=== PATIENT | male | born 1955 | race Caucasian/White ===

== ENCOUNTER 2018-01-03 02:05 | Inpatient (IN) | payer BC ==
[2018-01-03] MEDS ORDERED: RX INFO: IV CONTRAST WAS GIVEN 1 EACH MISC MISCELLANE PRN (02:09)
[2018-01-03] MEDS ORDERED: SODIUM CHLORIDE 0.9% 1,000 ML IV STA (02:09)
[2018-01-03 02:30] LABS: Glucose,Whole Blood 129 mg/dL (75-99)
--- NOTE | 2018-01-03 02:30 | CT ---
EXAMINATION TYPE: CT brain wo con for TPA DATE OF EXAM: 01/03/2018 COMPARISON: NONE HISTORY: code stroke CT DLP: 1530.00 mGycm Automated exposure control for dose reduction was used. FINDINGS: There is cortical hypodensity involving the left posterior parietal lobe extending into the left post erior temporal lobe consistent with old infarct. There is a 2.5 cm area of hypodensity in the cortex left posterior frontal lobe also. There is no midline shift. There is no sign of intracranial hemorrh age. Calvarium is intact. IMPRESSION: OLD LEFT POSTERIOR TEMPORAL AND POSTERIOR PARIETAL LOBE INFARCT. NO EVIDENCE OF AN ACUTE INFARCT. NO HEMORRHAGE. 2.5 CM AREA OF CORTICAL HYPODENSITY IN THE LEFT POSTERIOR FRONTAL LOBE ALSO CONSISTENT WITH OLD INFAR CT.
--- NOTE | 2018-01-03 02:38 | CT ---
EXAMINATION TYPE: CT angio head neck DATE OF EXAM: 01/03/2018 HISTORY: code stroke weakness COMPARISON: NONE CT DLP: 1530.00 mGycm. Automated Exposure Control for Dose Reduction was Utilized. TECHNIQUE: Multiple axial sections were obtained from the level of the aortic arch to the vertex of the brain with intravenous contrast. There are 3-D post processed images. FINDINGS: There is extensive subcarinal and bronchial adenopathy. There is also paratracheal and anterior media stinal adenopathy. There is a 4 cm right paratracheal lymph node. There is no evidence of aneurysm or dissection at the aortic arch. There is normal branching pattern of the great vessels on the aortic arch. There is bilateral vertebr al artery flow which shows no abnormality. Vertebral arteries are symmetric. There is patency of the common internal and external carotid arteries bilaterally. There is wide maurer ncy of the carotid artery bifurcations. There is arterial flow in the vertebrobasilar artery system. There is arterial flow in the anterior m iddle and posterior cerebral arteries. I see no evidence of aneurysm or neovascularity. There is no m ass effect. There is normal contrast opacification of the venous sinuses. There is cortical hypodensi ty in the left posterior temporal lobe, left posterior parietal lobe. There is also small area of hyp odensity in the left posterior frontal lobe cortex. CONCLUSION: Hypodensity in the left cerebral hemisphere as above consistent with old infarcts. No evidence of ane urysm or neovascularity. No evidence of arterial stenosis. Extensive mediastinal and bronchial adenopathy suggestive of malignancy. Follow-up is recommended. In terstitial fibrotic changes noted throughout the visualized lung cline.
--- NOTE | 2018-01-03 02:44 | ED ---
General Adult HPI - General Stated complaint: poss stroke Time Seen by Provider: 01/03/18 02:09 Source: RN notes reviewed, old records reviewed - History of Present Illness Initial comments: This is a 62-year-old male to the ER for evaluation of right-sided weakness. Patient has multiple medical issues as of late including severe and end-stage pancreatic cancer, DVTs, patient is on anticoagulation. Patient awoke tonight with attempted to go to bathroom, was unable to get out of chair, unable to move right arm. Patient currently cannot move the right-sided body, patient's brought in by EMS. - Related Data Home Medications Medication Instructions Recorded Confirmed Apixaban [Eliquis] 2.5 mg PO BID 01/03/18 01/03/18 Allergies Allergy/AdvReac Type Severity Reaction Status Date / Time No Known Allergies Allergy Verified 01/03/18 02:44 Review of Systems ROS Statement: Those systems with pertinent positive or pertinent negative responses have been documented in the HPI. ROS Other: All systems not noted in ROS Statement are negative. General Exam - General Exam Comments Initial Comments: NIH of 9, right-sided hemiparesis General appearance: alert, in no apparent distress Head exam: Present: atraumatic, normocephalic, normal inspection Eye exam: Present: normal appearance, PERRL, EOMI. Absent: scleral icterus, conjunctival injection, periorbital swelling ENT exam: Present: normal exam, mucous membranes moist Neck exam: Present: normal inspection. Absent: tenderness, meningismus, lymphadenopathy Respiratory exam: Present: normal lung sounds bilaterally. Absent: respiratory distress, wheezes, rales, rhonchi, stridor Cardiovascular Exam: Present: regular rate, normal rhythm, normal heart sounds. Absent: systolic murmur, diastolic murmur, rubs, gallop, clicks GI/Abdominal exam: Present: soft, normal bowel sounds. Absent: distended, tenderness, guarding, rebound, rigid Extremities exam: Present: normal inspection, full ROM, normal capillary refill. Absent: tenderness, pedal edema, joint swelling, calf tenderness Back exam: Present: normal inspection Neurological exam: Present: alert, oriented X3, CN II-XII intact Psychiatric exam: Present: normal affect, normal mood Skin exam: Present: warm, dry, intact, normal color. Absent: rash Course Vital Signs 01/03/18 01/03/1818 02:15 02:30 02:45 Temperature 98.1 F Pulse Rate 94 96 94 Respiratory 18 17 15 Rate Blood Pressure 112/73 115/74 102/66 O2 Sat by Pulse 94 L 96 96 Oximetry 01/03/18 01/03/18 03:10 03:34 Temperature Pulse Rate 89 92 Respiratory 18 18 Rate Blood Pressure 100/73 118/80 O2 Sat by Pulse 96 97 Oximetry - Reevaluation(s) Reevaluation #1: 01/03/18 03:55 Patient is not keeping TPA candidate secondary discussion with family, end- stage terminal cancer, positive anticoagulation use Eliquis twice today EKG Findings - EKG Comments: EKG Findings:: EKG shows sinus rhythm rate of 98, KS 1:30, QRS 100, QTC 485 Medical Decision Making - Medical Decision Making 59 female the ER for evaluation of strokelike symptoms, severe hemiparalysis, patient be admitted for continued neurological evaluation, patient is DO NOT RESUSCITATE secondary to severe disease of pancreatic cancer - Lab Data Lab Results 01/03/18 Range/Units 02:09 POC Glucose (mg/dL) 129 H (75-99) mg/dL POC Glu Serger ID Nikolas Baker - Radiology Data Radiology results: report reviewed (CT brain CT shows no acute disease, old posterior left-sided parietal stroke), image reviewed Critical Care Time Critical Care Time: Yes Total Critical Care Time: 31 Disposition Clinical Impression: Cerebrovascular accident, Pancreatic cancer, DVT (deep venous thrombosis) Disposition: ADMITTED IP TO THIS [facility] Condition: Critical Referrals: None,Stated [Primary Care Provider] - 1-2 days
[2018-01-03] MEDS ORDERED: ASPIRIN 325 MG TAB PO STA (03:53)
[2018-01-03 04:29] LABS: Anisocytosis Slight; HCT 28.3 % (39.0-53.0); HGB 9.2 gm/dL (13.0-17.5); Hypochromasia Slight; MCH 31.8 pg (25.0-35.0); MCHC 32.5 g/dL (31.0-37.0); Macrocytosis Slight; Mean Platelet Volume 10.2; Poikilocytosis Slight; RBC 2.89 m/uL (4.30-5.90); RDW 19.4 % (11.5-15.5); WBC 11.3 k/uL (3.8-10.6)
[2018-01-03 04:46] LABS: INR 1.8 (<1.2); Partial Thromboplastin Time 24.6 sec (22.0-30.0); Prothrombin Time 16.3 sec (9.0-12.0)
[2018-01-03] MEDS ORDERED: MORPHINE SULFATE 4MG/4ML SYRG IVP STA (04:51)
[2018-01-03 04:57] LABS: Albumin 2.8 g/dL (3.5-5.0); Calcium 9.1 mg/dL (8.4-10.2); Potassium 4.2 mmol/L (3.5-5.1); Total Bilirubin 4.8 mg/dL (0.2-1.3); Total Protein 6.3 g/dL (6.3-8.2)
[2018-01-03 05:01] LABS: Creatine Kinase 44 U/L (55-170)
[2018-01-03 05:10] LABS: Appearance,Urine Cloudy (Clear); Bacteria,Urine Rare /hpf; Bilirubin,Urine 1+ (Negative); Blood,Urine Small (Negative); Color,Urine Orange; Glucose,Urine (UA) Negative (Negative); Granular Casts,Urine 3 /lpf (0); Ketones,Urine Negative (Negative); Leukocyte Esterase,Urine Negative (Negative); Mucus,Urine Rare /hpf; Nitrite,Urine Negative (Negative); PH, Urine 5.5 (5.0-8.0); Protein,Urine 1+ (Negative); RBC,Urine 4 /hpf (0-5); Specific Gravity,Urine 1.036 (1.001-1.035); WBC,Urine 5 /hpf (0-5)
[2018-01-03 05:14] LABS: Creatine Kinase MB <0.2 ng/mL (0.0-2.4)
[2018-01-03 05:19] LABS: Band Neutrophils % 15 %; Eosinophils # (M) 0.57 k/uL (0-0.7); Lymphocytes # (M) 1.02 k/uL (1.0-4.8); Metamyelocytes # (M) 0.11 k/uL (0); Metamyelocytes % 1 %; Nucleated Red Blood Cells 0 /100 WBC (0-0)
[2018-01-03 05:20] LABS: Neutrophils % (M) 63 %; Total Cells Counted 200
[2018-01-03 05:22] LABS: Anisocytosis (M) Present; Polychromasia Present
[2018-01-03 05:24] LABS: Platelet Count 80 k/uL (150-450)
[2018-01-03 05:50] LABS: Troponin I 0.053 ng/mL (0.000-0.034)
[2018-01-03] MEDS ORDERED: SENNOSIDES 8.6 MG TAB PO PRN (09:34)
[2018-01-03] MEDS: MORPHINE SULFATE IR 15 MG TABLET PO PRN ×3 (10:00→21:32)
[2018-01-03] MEDS: MEGESTROL 400 MG/10 ML CUP PO SCH (10:02)
[2018-01-03] MEDS: APIXABAN 2.5 MG TABLET PO SCH ×2 (10:02→21:32)
[2018-01-03] MEDS: SODIUM CHLORIDE 0.9% 1,000 ML IV SCH ×2 (11:18→16:52)
--- NOTE | 2018-01-03 14:08 | P.CONS ---
History of Present Illness - Reason for Consult Consult date: 01/03/18 Pancreatic cancer Requesting physician: Alex Cotton - Chief Complaint right hemiparesis - History of Present Illness Mr. Strickland is a pleasant 62 yo male with history of newly found metastatic pancreatic cancer while in [place] for the winter, recently returned here and seen by Dr. Vigil, who presents for acute onset right hemiparesis, found to have acute CVA. He was diagnosed with bilateral LE DVT's while in [place] and further work up revealed diffusely metastatic malignancy. Liver biopsy done which showed pancreatic cancer. He came back home here, and was seen by Dr. Vigil a couple weeks ago. At that time, his PS was quickly declining and single agent therapy vs comfort measures were discussed. He opted for palliative care at home. He then woke up yesterday morning and was not able to move his right arm or leg. He was brought to the ED where he was found to have acute stroke. He is not a candidate for TPA due to anticoagulation therapy with eliquis for his VTE's. Otherwise, no new complaints. Past Medical History Past Medical History: Cancer Additional Past Medical History / Comment(s): polio; liver and pancreatic CA History of Any Multi-Drug Resistant Organisms: None Reported Past Surgical History: Unable to Obtain Past Psychological History: No Psychological Hx Reported Smoking Status: Former smoker Past Alcohol Use History: None Reported Past Drug Use History: None Reported Medications and Allergies Home Medications Medication Instructions Recorded Confirmed Type Apixaban [Eliquis] 2.5 mg PO BID 01/03/18 01/03/18 History Lactulose 20 gm PO TID PRN 01/03/18 01/03/18 History Megestrol [Megace] 400 mg PO DAILY 01/03/18 01/03/18 History Morphine Sulfate Ir [Msir] 15 mg PO Q6HR PRN 01/03/18 01/03/18 History Sennosides [Senna] 17.2 mg PO BID PRN 01/03/18 01/03/18 History Allergies Allergy/AdvReac Type Severity Reaction Status Date / Time No Known Allergies Allergy Verified 01/03/18 07:32 Physical Exam Vitals: Vital Signs Temp Pulse Pulse Resp BP BP Pulse Ox 01/03/18 10:53 97.1 F L 89 18 125/74 98 01/03/18 10:13 98 F 85 18 121/61 98 01/03/18 09:20 72 19 117/68 97 01/03/18 08:23 87 18 105/59 97 01/03/18 06:15 90 17 96/67 98 01/03/18 05:39 90 18 106/70 98 01/03/18 05:00 97 18 105/72 98 01/03/18 04:00 94 17 112/76 100 01/03/18 03:34 92 18 118/80 97 01/03/18 03:10 89 18 100/73 96 01/03/18 02:45 94 15 102/66 96 01/03/18 02:30 96 17 115/74 96 01/03/18 02:15 98.1 F 94 18 112/73 94 L Intake and Output 01/02/18 01/03/18 01/03/18 22:59 06:59 14:59 Output Total 0 Balance 0 Output: Urine 0 Stool 0 Other: Voiding Method Urinal # Voids 0 # Bowel Movements 0 Weight 104.326 kg Constitutional: No acute distress. HEENT: EOMI. No pallor. Does have scleral icterus. Mucosa moist without lesions. Neck: Neck supple. Lungs:Respiratory effort normal. Heart: Regular rate. No LE edema. Abdomen: Soft, nontender, however distended and firm. MSK: 4/4 strength in all 4 extremities. Neuro: Alert and oriented x 3. Right hemiparesis. Some difficulty with slurring of his speech. Skin: Jaundice. Psych: Appropriate affect Results CBC & Chem 7: 01/03/18 03:56 01/03/18 03:56 Labs: Abnormal Lab Results - Last 24 Hours (Table) 01/03/18 01/03/18 01/03/18 Range/Units 02:09 03:56 03:56 WBC 11.3 H (3.8-10.6) k/uL RBC 2.89 L (4.30-5.90) m/uL Hgb 9.2 L (13.0-17.5) gm/dL Hct 28.3 L (39.0-53.0) % RDW 19.4 H (11.5-15.5) % Plt Count 80 L (150-450) k/uL Neutrophils # (Manual) 8.80 H (1.3-7.7) k/uL Metamyelocytes # (Man) 0.11 H (0) k/uL PT (9.0-12.0) sec INR (<1.2) Sodium (137-145) mmol/L BUN (9-20) mg/dL Creatinine (0.66-1.25) mg/dL Glucose (74-99) mg/dL POC Glucose (mg/dL) 129 H (75-99) mg/dL Total Bilirubin (0.2-1.3) mg/dL AST (17-59) U/L ALT (21-72) U/L Alkaline Phosphatase (38-126) U/L Total Creatine Kinase 44 L (55-170) U/L Troponin I 0.053 H* (0.000-0.034) ng/mL Albumin (3.5-5.0) g/dL Ur Specific [place] (1.001-1.035) Urine Protein (Negative) Urine Blood (Negative) Urine Bilirubin (Negative) Urine Bacteria (None) /hpf Urine Mucus (None) /hpf 01/03/18 01/03/18 01/03/18 Range/Units 03:56 03:56 04:39 WBC (3.8-10.6) k/uL RBC (4.30-5.90) m/uL Hgb (13.0-17.5) gm/dL Hct (39.0-53.0) % RDW (11.5-15.5) % Plt Count (150-450) k/uL Neutrophils # (Manual) (1.3-7.7) k/uL Metamyelocytes # (Man) (0) k/uL PT 16.3 H (9.0-12.0) sec INR 1.8 H (<1.2) Sodium 135 L (137-145) mmol/L BUN 33 H (9-20) mg/dL Creatinine 1.30 H (0.66-1.25) mg/dL Glucose 130 H (74-99) mg/dL POC Glucose (mg/dL) (75-99) mg/dL Total Bilirubin 4.8 H (0.2-1.3) mg/dL AST 190 H (17-59) U/L ALT 113 H (21-72) U/L Alkaline Phosphatase 216 H (38-126) U/L Total Creatine Kinase (55-170) U/L Troponin I (0.000-0.034) ng/mL Albumin 2.8 L (3.5-5.0) g/dL Ur Specific [place] 1.036 H (1.001-1.035) Urine Protein 1+ H (Negative) Urine Blood Small H (Negative) Urine Bilirubin 1+ H (Negative) Urine Bacteria Rare H (None) /hpf Urine Mucus Rare H (None) /hpf CT Scan - head: report reviewed Assessment and Plan Assessment: Acute CVA Metastatic pancreatic cancer Plan: Mr. Strickland is a very pleasant 62 yo male with newly diagnosed metastatic pancreatic cancer and LE DVT on eliquis who has been under the care of palliative at home, here for acute CVA and right sided hemiparesis. His malignancy is quite advanced, and with his poor PS, he is not a candidate for chemotherapy at this time. Overall prognosis is extremely poor. After discussion with pt and his family at bedside, they do not wish him to to through treatments for his malignancy either and he would like to focus his care on comfort measures. I did discuss palliative care which he currently has as opposed to hospice care. At this time, he would like to go to a facility close to home with hospice care, which I agree with. Will discuss with nurse case manager regarding this. All questions were answered and they were agreeable with the plan.
--- NOTE | 2018-01-03 15:46 | HP ---
HISTORY AND PHYSICAL DATE OF ADMISSION: January 03, 2018. PRESENTING COMPLAINT: Right-sided weakness. HISTORY OF PRESENTING COMPLAINT: This is a very pleasant 62-year-old patient of Dr. Lopez. Also follows with Dr. Vigil. The patient was in [place] where he was diagnosed to have bilateral DVT going more proximally and in the workup, patient was found to have metastatic pancreatic cancer with metastases to the liver, lymph nodes in the abdomen. The patient did also have a liver biopsy. Family has decided not for any treatment. The patient does have some chronic weakness of the right arm, though able to use it from polio. Otherwise, patient has been in good health prior to this. The patient sitting on a recliner tried to get up, could not really use the right arm and right leg and there was no change in speech. No change in vision. No headache. Because patient is on Eliquis for the chronic DVT, the patient is not felt to be a candidate for any tPA and patient admitted with an acute stroke. The patient is left handed. No improvement since initial presentation. The patient's and son at the bedside. REVIEW OF SYSTEMS: Constitutional: Tired, weight loss, loss of appetite. HEENT none. Respiratory none. Cardiovascular none. Gastrointestinal: Some chronic slight abdominal pain. Genitourinary none. Musculoskeletal none. Dermatological and hematologic, lymphatic none. Psychiatry none. Neurological as above. PAST MEDICAL HISTORY: Past medical history of metastatic pancreatic cancer to the liver, abdominal, some chronic right arm weakness from polio. PAST SURGICAL HISTORY: Left breast, left flank benign lesions removed, colonoscopy, bilateral cataract surgery with lens implant. SOCIAL HISTORY: The patient does not smoke or drink alcohol. . Used to work in a factory. FAMILY HISTORY: Father of a heart attack at age of age 43. HOME MEDICATIONS: Senna 17.2 p.o. b.i.d. p.r.n., morphine sulfate 50 mg q.6h p.r.n., Megace 400 mg p.o. daily, lactulose 20 g p.o. t.i.d. p.r.n., Eliquis 2.5 p.o. b.i.d. ALLERGIES: None. PHYSICAL EXAMINATION: Vital signs on presentation: Temperature 98.1, pulse 101, respiration 18, blood pressure 110/77, pulse ox 95% on room air. General appearance: Well built. BMI 31.2, lying in bed awake. Eyes: Pupils are equal. Conjunctivae normal. HEENT external appearance of nose and ears normal. Oral cavity normal. Neck: JVD not raised. Mass not palpable. Respiratory effort: Normal. Lungs are clear. Cardiovascular 1st and 2nd sounds normal. No edema. ABDOMEN: Soft, some mild abdominal tenderness. Liver and spleen not palpable. Lymphatics: No lymph nodes palpable in the neck and axilla. PSYCHIATRY: Alert and oriented times three. Mood and affect normal. Neurological: Pupils equal. Cranial nerves grossly intact. Power and sensation grossly intact. Neurological: Pupils equal. No facial asymmetry. Power in the right arm is 1 x 5, power in the right leg is 1 x 5. Sensation grossly preserved. Reflexes are increased on the right side. INVESTIGATIONS: White count 11.3, hemoglobin 9.2, platelets 80. Potassium 4.2, BUN 33, creatinine 1.30, AST 190, ALT 113. CT scan of the brain shows old left posterior temporal and posterior parietal lobe infarct. No hemorrhage. Also 2.5 cm of cortical hyperdensity in the left posterior frontal lobe. EKG normal sinus rhythm. ASSESSMENT: 1. Acute stroke in a left-handed patient on the right side of the body, rather dense, probably could be in the brainstem. The patient is not a candidate for tPA of already being on Eliquis for a prior deep vein thrombosis. 2. Chronic bilateral deep vein thrombosis from underlying malignancy for which patient is chronically on Eliquis. 3. Anorexia from underlying malignancy. 4. Metastatic pancreatic cancer. 5. Chronic right arm weakness from prior history of polio. 6. Obesity BMI 31.2. PLAN: I had a lengthy talk with the patient and the . At this point, they do not wish to be too aggressive of course given his metastatic disease. We will have PT/OT assess the patient and see if he is a candidate for rehab. Overall prognosis is not good given his metastatic disease. The pain control is in place. We will keep the patient presently on Eliquis. The patient has no trouble swallowing. Did speak to the piano case maker about the same. Patient's CODE STATUS IS DO NOT RESUSCITATE. This has to be reconfirmed with the . Copy to Dr. Vigil. MMTARUNL / CAROLYNN: [id number] /
--- NOTE | 2018-01-03 20:28 | P.CNNES ---
History of Present Illness Consult date: 01/03/18 Reason for Consult: Patient admitted with right sided weakness and possible TIA vs. stroke. History of Present Illness: This patient is a 62-year-old right-handed white male who was recently diagnosed implored as having bilateral deep vein thrombosis. Patient also mentions that he recently was diagnosed as having metastatic pancreatic cancer while in [place]. He has returned back to [place] and apparently has been seen by Dr. Carpenter in the oncology clinic. He is not felt to be a candidate for chemotherapy given the advanced stage of his pancreatic cancer. He underwent some further evaluation including liver biopsy which did show metastatic lesions to the liver. According to the patient at about midnight yesterday he developed sudden onset of right-sided weakness. He was unable to lift his right arm and later noticed he could not move his right leg. He was brought into the emergency room for further evaluation. He was seen in the ER by Dr. Montoya. He went for a computed tomography scan of the brain which revealed him to have evidence of a old left posterior temporal and posterior parietal lobe infarct. There is also old left frontal lobe infarct noted on the CAT scan. A code stroke was initiated in the ER but he was excluded for TPA as he is been on Eliquis for treatment of his chronic DVTs. 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 When questioned about the CAT scan results in regards to old strokes a patient was unaware of old stroke. Patient was also sent for a CTA angiogram of the head and neck which revealed hypodensity in the left cerebral hemisphere consistent with old infarcts. There was no evidence of aneurysm and no evidence of arterial stenosis. Case was discussed today with Dr. Cotton. Apparently the has made his CODE STATUS is DO NOT RESUSCITATE. They're considering whether to place the patient into subacute rehab or even to consider hospice care for him long-term. The family does not wish to proceed with any aggressive evaluation such as MRI of the brain at this time. We have suggested MRI would be most helpful for further evaluation of acute left hemispheric stroke. As per the family wishes we will hold off on further testing given his overall medical condition with metastatic pancreatic cancer. Patient may benefit from PT OT evaluation for his acute right hemiplegic weakness. If the family decides to be more aggressive weak and easily recommend further stroke evaluation for this patient. His overall prognosis at this time remains very guarded. Review of Systems Constitutional: Denies chills, Denies fever Eyes: denies blurred vision, denies pain Ears, nose, mouth and throat: Denies headache, Denies sore throat Cardiovascular: Denies chest pain, Denies shortness of breath Respiratory: Denies cough Gastrointestinal: Denies abdominal pain, Denies diarrhea, Denies nausea, Denies vomiting Musculoskeletal: Denies myalgias Integumentary: Denies pruritus, Denies rash Neurological: Reports gait dysfunction, Reports motor disturbance, Reports paralysis, Reports paresthesias, Denies numbness, Denies weakness Psychiatric: Denies anxiety, Denies depression Endocrine: Denies fatigue, Denies weight change Past Medical History Past Medical History: Cancer Additional Past Medical History / Comment(s): polio; liver and pancreatic CA History of Any Multi-Drug Resistant Organisms: None Reported Past Surgical History: Unable to Obtain Additional Past Surgical History / Comment(s): L breast and L flank benign lesions removed, colonoscopy, bilateral cataract removals with lens implants. Past Anesthesia/Blood Transfusion Reactions: No Reported Reaction Past Psychological History: No Psychological Hx Reported Smoking Status: Former smoker Past Alcohol Use History: None Reported Past Drug Use History: None Reported - Past Family History Father Family Medical History: Myocardial Infarction ([place]) Additional Family Medical History / Comment(s): Father at the age of 43 yrs from a [place]. Mother Family Medical History: Coronary Artery Disease (CAD), Diabetes Mellitus, Hypertension Additional Family Medical History / Comment(s): Mother had CABG. She at the age of 90yrs. Medications and Allergies Home Medications Medication Instructions Recorded Confirmed Type Apixaban [Eliquis] 2.5 mg PO BID 01/03/18 01/03/18 History Lactulose 20 gm PO TID PRN 01/03/18 01/03/18 History Megestrol [Megace] 400 mg PO DAILY 01/03/18 01/03/18 History Morphine Sulfate Ir [Msir] 15 mg PO Q6HR PRN 01/03/18 01/03/18 History Sennosides [Senna] 17.2 mg PO BID PRN 01/03/18 01/03/18 History Allergies Allergy/AdvReac Type Severity Reaction Status Date / Time No Known Allergies Allergy Verified 01/03/18 07:32 Physical Examination - Vital Signs Vital Signs: Vital Signs Temp Pulse Pulse Resp BP BP Pulse Ox 01/03/18 15:00 97.5 F L 91 16 108/69 99 01/03/18 14:53 97.5 F L 91 16 108/69 99 01/03/18 12:53 97.1 F L 89 18 101/71 98 01/03/18 10:53 97.1 F L 89 18 125/74 98 01/03/18 10:13 98 F 85 18 121/61 98 01/03/18 09:20 72 19 117/68 97 01/03/18 08:23 87 18 105/59 97 01/03/18 06:15 90 17 96/67 98 01/03/18 05:39 90 18 106/70 98 01/03/18 05:00 97 18 105/72 98 01/03/18 04:00 94 17 112/76 100 01/03/18 03:34 92 18 118/80 97 01/03/18 03:10 89 18 100/73 96 01/03/18 02:45 94 15 102/66 96 01/03/18 02:30 96 17 115/74 96 01/03/18 02:15 98.1 F 94 18 112/73 94 L Intake and Output 01/03/18 01/03/18 01/03/18 06:59 14:59 22:59 Intake Total 237 Output Total 0 0 Balance 237 0 Intake: Oral 237 Output: Urine 0 Stool 0 0 Other: Voiding Method Urinal Urinal # Voids 0 # Bowel Movements 0 Weight 104.326 kg - Constitutional General appearance: average body habitus, cooperative - EENT EENT: PERRL, mucous membranes moist - Respiratory Respiratory: lungs clear, normal breath sounds - Cardiovascular Cardiovascular: regular rate, normal S1, normal S2 Extremities: no peripheral edema bilaterally - Gastrointestinal Gastrointestinal: normoactive bowel sounds - Integumentary Integumentary: normal - Neurologic Cranial nerve examination: PERRL, EOMI, VFF, V1/V2/V3 grossly intact, face symmetric, intact gag reflex, intact corneal reflex, normal palatal elevation Speech examination: intact Sensorimotor examination: intact Motor examination - right side: 10/05: biceps, triceps, wrist flexion, wrist extension, manager internal, hip flexors, knee extensors, dorsiflexion, toe extension (EHL) , plantarflexion Motor examination - left side: 4/5: biceps, triceps, wrist flexion, wrist extension, manager internal, hip flexors, knee extensors, dorsiflexion, toe extension (EHL) , plantarflexion Detailed sensory examination: intact Reflex and gait examination: intact Reflexes: 1+: ankle, bicep, knee, tricep - Musculoskeletal Musculoskeletal: no pain - Psychiatric Psychiatric: mood/affect appropriate, cooperative Results - Laboratory Findings CBC and BMP: 01/03/18 03:56 01/03/18 03:56 Abnormal Lab Findings: Abnormal Labs 01/03/18 01/03/18 01/03/18 02:09 03:56 03:56 WBC 11.3 H RBC 2.89 L Hgb 9.2 L Hct 28.3 L RDW 19.4 H Plt Count 80 L Neutrophils # (Manual) 8.80 H Metamyelocytes # (Man) 0.11 H PT INR Sodium BUN Creatinine Glucose POC Glucose (mg/dL) 129 H Total Bilirubin AST ALT Alkaline Phosphatase Total Creatine Kinase 44 L Troponin I 0.053 H* Albumin Ur Specific [place] Urine Protein Urine Blood Urine Bilirubin Urine Bacteria Urine Mucus 01/03/18 01/03/18 01/03/18 03:56 03:56 04:39 WBC RBC Hgb Hct RDW Plt Count Neutrophils # (Manual) Metamyelocytes # (Man) PT 16.3 H INR 1.8 H Sodium 135 L BUN 33 H Creatinine 1.30 H Glucose 130 H POC Glucose (mg/dL) Total Bilirubin 4.8 H AST 190 H ALT 113 H Alkaline Phosphatase 216 H Total Creatine Kinase Troponin I Albumin 2.8 L Ur Specific [place] 1.036 H Urine Protein 1+ H Urine Blood Small H Urine Bilirubin 1+ H Urine Bacteria Rare H Urine Mucus Rare H Assessment and Plan (1) Acute ischemic left MCA stroke Current Visit: Yes Status: Acute Code(s): I63.512 - CEREB INFRC D/T UNSP OCCLS OR STENOS OF LEFT MID CEREB ART SNOMED Code(s): 353975633 (2) DVT (deep venous thrombosis) Current Visit: Yes Status: Acute Code(s): I82.409 - ACUTE EMBOLISM AND THOMBOS UNSP DEEP VN UNSP LOWER EXTREMITY SNOMED Code(s): 983294644 (3) Pancreatic cancer Current Visit: Yes Status: Acute Code(s): C25.9 - MALIGNANT NEOPLASM OF PANCREAS, UNSPECIFIED SNOMED Code(s): 250729388 Plan: This patient is a 62-year-old male who was admitted with sudden onset of right- sided hemiplegia. Patient recently was diagnosed as having metastatic pancreatic cancer as well as bilateral DVTs in his legs. He states this diagnosis was made in [place] and he has since returned to [place] for further management of his underlying cancer condition. He is being followed by Dr. Vigil. He is not felt to be a candidate for chemotherapy as he does have metastatic pancreatic cancer with spread to the liver, lymph nodes and abdomen. Apparently according to Dr. Cotton his wishes the patient to be made DO NOT RESUSCITATE and does not wish to pursue aggressive treatment at this time. His neurological exam findings are one of dense hemiplegia on the right side. He underwent a computed tomography scan of the brain the results which are noted above. We have recommended an MRI of the brain but this has been placed on hold at this time as family does not wish to pursue aggressive evaluation. They would like to consider subacute rehab placement and possible hospice care for the patient. We would recommend PT OT evaluation for the patient. He is currently on Eliquis for treatment of bilateral DVTs. He is not a candidate for TPA as he is on anticoagulant. The patient is aware of his CAT scan findings. At this time we will await further recommendations per his other specialists in regards to his metastatic pancreatic cancer and further workup and treatment. This patient likely has suffered an acute left hemispheric stroke. Given his advanced metastatic pancreatic cancer further workup has been deferred at this time at the wishes of the family. We will continue to follow his progress as needed. His overall prognosis at this time remains very guarded. Anyone 750 twice a 82 things it somewhat better Time with Patient: Greater than 30
[2018-01-04 03:12] LABS: Cholesterol 187 mg/dL (<200); HDL Cholesterol 10 mg/dL (40-60); LDL Cholesterol,Calculated 129 mg/dL (0-99); Triglycerides 242 mg/dL (<150)
[2018-01-04] MEDS: MORPHINE SULFATE IR 15 MG TABLET PO PRN ×3 (04:59→20:21)
[2018-01-04] MEDS: APIXABAN 2.5 MG TABLET PO SCH ×2 (08:13→20:21)
[2018-01-04] MEDS: MEGESTROL 400 MG/10 ML CUP PO SCH (08:14)
[2018-01-04] MEDS: ASPIRIN 325 MG TAB PO SCH (08:14)
[2018-01-04 09:50] VITALS: BMI 31.5
--- NOTE | 2018-01-04 18:09 | P.PN ---
Subjective Progress Note Date: 01/04/18 This patient is a 62-year-old right-handed white male who is being followed for symptoms of acute right-sided hemiplegia. The patient had findings of dense right-sided hemiplegia. There was concern that he likely has suffered an acute left MCA stroke. He has history of metastatic pancreatic cancer as well and family has decided on conservative management for this patient. He is not a candidate for any aggressive treatment for the pancreatic cancer as per his attending physician Dr. Cotton. Family is considering transferring the patient to a subacute rehab for further management of his acute stroke findings. The patient is resting completely today in his bed. He states physical therapy was able to get him up and sitting on the side of the bed. They are working on some passive exercise program for his acute right-sided weakness. The patient otherwise seems to be doing fairly well. He is considering transfer to the subacute rehab unit at [facility] in [place] when a bed is available. We will continue close neurological follow-up with the patient during this admission. Objective - Vital Signs Vital signs: Vital Signs Temp 98.1 F 01/04/18 15:36 Pulse 95 01/04/18 16:00 Resp 16 01/04/18 16:00 BP 103/70 01/04/18 15:36 Pulse Ox 95 01/04/18 15:36 Intake & Output 01/03/18 01/04/18 01/04/18 18:59 06:59 18:59 Intake Total 237 240 Output Total 175 200 0 Balance 62 -200 240 Weight 105.4 kg 105.4 kg Intake: Oral 237 240 Output: Urine 175 200 Stool 0 0 Other: Voiding Method Urinal Urinal Urinal # Voids 1 175 2 # Bowel Movements 0 - Exam Physical examination: PHYSICAL EXAMINATION: Patient is resting comfortably in bed. VITAL SIGNS: Blood pressure is [103/70]. Heart rate is [95]. Respiration is [16] . Temperature is [98.1]. HEENT: Head is atraumatic, neck is supple, there were no carotid bruits. CHEST: Lungs are clear to auscultation and percussion. CARDIAC: S1, S2 normal rate and rhythm. There is no murmur. ABDOMEN: Soft and nontender. Bowel sounds are present. EXTREMITIES: There is no pedal edema. Peripheral pulses are present. Neurological examination: Patient's neurological examination is unchanged from yesterday. He has a dense right-sided hemiplegia. Speech is clear with no evidence of any aphasia. Deep tendon reflexes are 2+ and symmetric. Plantar responses extensor on the right and flexor on the left - Labs CBC & Chem 7: 01/03/18 03:56 01/03/18 03:56 Labs: Abnormal Lab Results - Last 24 Hours (Table) 01/03/18 Range/Units 03:56 Triglycerides 242 H (<150) mg/dL LDL Cholesterol, Calc 129 H (0-99) mg/dL HDL Cholesterol 10 L (40-60) mg/dL Assessment and Plan (1) Acute ischemic left MCA stroke Current Visit: Yes Status: Acute Code(s): I63.512 - CEREB INFRC D/T UNSP OCCLS OR STENOS OF LEFT MID CEREB ART SNOMED Code(s): 344099674 (2) DVT (deep venous thrombosis) Current Visit: Yes Status: Acute Code(s): I82.409 - ACUTE EMBOLISM AND THOMBOS UNSP DEEP VN UNSP LOWER EXTREMITY SNOMED Code(s): 110675999 (3) Pancreatic cancer Current Visit: Yes Status: Acute Code(s): C25.9 - MALIGNANT NEOPLASM OF PANCREAS, UNSPECIFIED SNOMED Code(s): 146242296 Plan: This patient is a 62-year-old male who is being followed for acute onset of right-sided hemiplegia. The patient has likely suffered an acute left hemispheric stroke. He has a history of metastatic pancreatic cancer and it has been decided to proceed with supportive care for the patient. His and family does not wish to pursue aggressive treatment for his stroke at this time but rather seek out subacute rehab placement. He has a dense right-sided hemiplegia which is unchanged from his initial presentation. He was able to work with physical therapy today an exercise program was reviewed. He will await a placement to the subacute rehab unit once a bed is available. We will continue close neurological follow-up for the patient during this admission.
--- NOTE | 2018-01-04 18:50 | PN ---
PROGRESS NOTE DATE OF SERVICE: 01/04/2018 PRESENTING COMPLAINT: Right-sided weakness. INTERVAL HISTORY: This patient presented with a dense stroke on the right side with metastatic carcinoma. No improvement. Lying in bed. Tolerating his diet. Otherwise comfortable. at the bedside. REVIEW OF SYSTEMS: Done for constitutional, cardiovascular, GI, pulmonary, neuro; relevant findings as above. CURRENT MEDICATIONS: Reviewed. They include aspirin and Eliquis. PHYSICAL EXAMINATION: Temperature 97.5, pulse 101, respiration 18, blood pressure 126/78, pulse ox 93% on room air. GENERAL APPEARANCE: Lying in bed. Comfortable. EYES: Pupils equal. Conjunctivae normal. HEENT: External appearance of nose and ears normal. Oral cavity normal. NECK: JVD not raised. Mass not palpable. RESPIRATORY: Effort normal. Lungs are clear. CARDIOVASCULAR: First and second sounds normal. No edema. ABDOMEN: Soft. Mild abdominal tenderness. Liver and spleen not palpable. PSYCHIATRY: Alert and oriented x3. Mood and affect normal. NEUROLOGICAL: Power on the right side is 1/5. INVESTIGATIONS: No blood work from today. ASSESSMENT: 1. Acute stroke in a left-handed patient on the right side of the body, rather dense; could be in the brainstem, likely ischemic in nature. 2. Chronic bilateral deep venous thrombosis from underlying malignancy, for which patient is chronically on Eliquis. 3. 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 4. Metastatic pancreatic cancer. 5. Chronic right arm weakness from prior history of polio. 6. Obesity; body mass index 31.2. 7. CODE STATUS: DO NOT RESUSCITATE. PLAN: Did discuss with Dr. Reyes last night. Given patient's overall poor prognosis, no further workup. I did also talk to his . She is agreeable with the same; looking at patient going to rehab. Prognosis not good. MMODL / IJN: [id number] /
[2018-01-05] MEDS: MORPHINE SULFATE IR 15 MG TABLET PO PRN ×3 (06:07→19:08)
[2018-01-05] MEDS: LACTULOSE 20 GM/30 ML CUP PO PRN (08:39)
[2018-01-05] MEDS: ASPIRIN 325 MG TAB PO SCH (08:40)
[2018-01-05] MEDS: MEGESTROL 400 MG/10 ML CUP PO SCH (08:40)
[2018-01-05] MEDS: APIXABAN 2.5 MG TABLET PO SCH ×2 (08:40→20:23)
[2018-01-05] MEDS: PSYLLIUM HUSK 100% 6 GM PACKET PO SCH (18:10)
--- NOTE | 2018-01-05 20:06 | PN ---
PROGRESS NOTE DATE OF SERVICE: January 05, 2018. PRESENTING COMPLAINT: Right-sided weakness. INTERVAL HISTORY: The patient with metastatic pancreatic cancer, presents with dense stroke on the right side. Awaiting going to rehab. No improvement on the right side. The patient is constipated from the morphine he takes for chronic pain. and sister in law at the bedside. REVIEW OF SYSTEMS: Done for constitutional, cardiovascular, GI, pulmonary, relevant findings as above. CURRENT MEDICATIONS: Reviewed. EXAMINATION: Temperature 98.7, pulse 115, respirations 16, blood pressure 106/74, pulse ox 94% on room air. General: Lying in bed, awake. Eyes pupils are equal. Conjunctivae normal. HEENT: External appearance of nose and ears normal. Oral cavity normal. Neck JVD not raised. Mass not palpable. Respiratory effort normal. LUNGS: Clear. Cardiovascular: 1st and 2nd sounds normal. No edema. ABDOMEN: Soft, minimal tenderness. Liver and spleen not palpable. Psychiatry: Alert and oriented x3. Mood and affect normal. Neurological: Power on the right side is 1/5. INVESTIGATIONS: No blood work from today. ASSESSMENT: 1. Acute stroke in a left handed patient on the right side of the body could be from the brainstem, likely ischemic in nature. 2. Chronic bilateral deep vein thrombosis underlying for which patient is chronically on Eliquis. 3. 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 4. Metastatic pancreatic cancer. 5. Chronic right arm weakness from a prior history of polio before the stroke. 6. Obesity; BMI 31.2. 7. CODE STATUS DNR. PLAN: Care was discussed with the patient and family at the bedside. We will add Metamucil. The patient is awaiting to go to rehab. MMODL / IJN: [id number] /
--- NOTE | 2018-01-05 23:05 | P.PN ---
Subjective Progress Note Date: 01/05/18 This patient is a 62-year-old right-handed white male who is being followed for symptoms of acute right-sided hemiplegia. The patient had findings of dense right-sided hemiplegia. There was concern that he likely has suffered an acute left MCA stroke. He has history of metastatic pancreatic cancer as well and family has decided on conservative management for this patient. He is not a candidate for any aggressive treatment for the pancreatic cancer as per his attending physician Dr. Cotton. Family is considering transferring the patient to a subacute rehab for further management of his acute stroke findings. The patient is resting completely today in his bed. He states physical therapy was able to get him up and sitting on the side of the bed. They are working on some passive exercise program for his acute right-sided weakness. The patient otherwise seems to be doing fairly well. He is considering transfer to the subacute rehab unit at [facility] in [place] when a bed is available. Dr. Cotton has spoken to the patient's and once again has reinforce the poor prognosis for this patient given his new findings of acute stroke. She would like to continue with only supportive care for this patient without aggressive workup for stroke at this time. As noted he is awaiting placement into the subacute rehab unit when a bed is available. We will continue close neurological follow-up with the patient during this admission. Objective - Vital Signs Vital signs: Vital Signs Temp 98.3 F 01/05/18 16:00 Pulse 109 H 01/05/18 16:00 Resp 16 01/05/18 16:00 BP 115/78 01/05/18 16:00 Pulse Ox 97 01/05/18 16:00 Intake & Output 01/04/18 01/05/18 01/05/18 18:59 06:59 18:59 Intake Total 240 200 Output Total 0 300 0 Balance 240 -300 200 Weight 105.4 kg 110 kg Intake: Oral 240 200 Output: Urine 300 Stool 0 0 0 Other: Voiding Method Urinal Urinal Urinal Diaper Diaper Incontinent Incontinent # Voids 2 1 1 - Exam Physical examination: PHYSICAL EXAMINATION: Patient is resting comfortably in bed. VITAL SIGNS: Blood pressure is [118/75]. Heart rate is [103]. Respiration is [16 ]. Temperature is [98.2]. HEENT: Head is atraumatic, neck is supple, there were no carotid bruits. CHEST: Lungs are clear to auscultation and percussion. CARDIAC: S1, S2 normal rate and rhythm. There is no murmur. ABDOMEN: Soft and nontender. Bowel sounds are present. EXTREMITIES: There is no pedal edema. Peripheral pulses are present. Neurological examination: Patient's neurological examination is unchanged from yesterday. He has a dense right-sided hemiplegia. Speech is clear with no evidence of any aphasia. Deep tendon reflexes are 2+ and symmetric. Plantar responses extensor on the right and flexor on the left - Labs CBC & Chem 7: 01/03/18 03:56 18 03:56 Assessment and Plan (1) Acute ischemic left MCA stroke Current Visit: Yes Status: Acute Code(s): I63.512 - CEREB INFRC D/T UNSP OCCLS OR STENOS OF LEFT MID CEREB ART SNOMED Code(s): 660694462 (2) DVT (deep venous thrombosis) Current Visit: Yes Status: Acute Code(s): I82.409 - ACUTE EMBOLISM AND THOMBOS UNSP DEEP VN UNSP LOWER EXTREMITY SNOMED Code(s): 345083462 (3) Pancreatic cancer Current Visit: Yes Status: Acute Code(s): C25.9 - MALIGNANT NEOPLASM OF PANCREAS, UNSPECIFIED SNOMED Code(s): 915845463 Plan: This patient is a 62-year-old male who is being followed for acute onset of right-sided hemiplegia. The patient has likely suffered an acute left hemispheric stroke. He has a history of metastatic pancreatic cancer and it has been decided to proceed with supportive care for the patient. His and family does not wish to pursue aggressive treatment for his stroke at this time but rather seek out subacute rehab placement. He has a dense right-sided hemiplegia which is unchanged from his initial presentation. He was able to work with physical therapy today an exercise program was reviewed. He will await a placement to the subacute rehab unit once a bed is available. We are going to continue with conservative management for his stroke. As noted no further workup is planned at this time. This was discussed with Dr. Cotton and the patient's . We are going to continue with supportive care for the patient and he is awaiting placement into subacute rehab. We will continue close neurological follow-up for the patient during this admission.
[2018-01-06] MEDS: MORPHINE SULFATE IR 15 MG TABLET PO PRN ×3 (03:41→15:38)
[2018-01-06] MEDS: ASPIRIN 325 MG TAB PO SCH (09:31)
[2018-01-06] MEDS: APIXABAN 2.5 MG TABLET PO SCH ×2 (09:31→20:10)
[2018-01-06] MEDS: MEGESTROL 400 MG/10 ML CUP PO SCH (09:32)
[2018-01-06] MEDS: PSYLLIUM HUSK 100% 6 GM PACKET PO SCH (09:32)
--- NOTE | 2018-01-06 12:28 | PN ---
PROGRESS NOTE DATE OF SERVICE: 01/06/18. PRESENTING COMPLAINT: Right-sided weakness. INTERVAL HISTORY: The patient has metastatic pancreatic cancer, presents with a dense stroke on the right side of the body. Takes morphine for chronic abdominal pain. Tolerating a diet. Awaiting transfer to rehab on Sunday. Otherwise comfortable. Family at the bedside including . REVIEW OF SYSTEMS: Done for constitutional, cardiovascular, GI, pulmonary, neuro; relevant findings as above. CURRENT MEDICATIONS: Reviewed that include Eliquis and aspirin. PHYSICAL EXAMINATION: Temperature 98.1, pulse 101, respiration 16, blood pressure 150/85, pulse ox 93% on room air. GENERAL APPEARANCE: Lying in bed, comfortable. EYES: Pupils equal. Conjunctivae normal. HEENT: External nose and ears normal. Oral cavity normal. NECK: JVD unable to assess. Mass not palpable. RESPIRATORY: Effort normal, lungs fair entry. CARDIOVASCULAR: First and second sounds normal. No edema. ABDOMEN: Soft. Some tenderness. Liver and spleen not palpable. PSYCHIATRY: Alert and oriented x3. Mood and affect normal. NEUROLOGICAL: Power on the right side remains 1/5. INVESTIGATIONS: No blood work from today. ASSESSMENT: 1. Acute stroke in the left handed patient on the right side of the body, likely ischemic, possibly in the brainstem. 2. Chronic DVT for which patient is chronically on Eliquis. 3. Anorexia for malignancy. 4. Metastatic pancreatic cancer. 5. Chronic right arm weakness prior to the stroke from polio. 6. Obesity; BMI 31.2. 7. CODE STATUS DNR. PLAN: Care was discussed with patient and family at the bedside. Will await transfer to rehab when bed is available. CODE STATUS: DO NOT RESUSCITATE. MMODL / IJN: [id number] /
[2018-01-06] MEDS: LACTULOSE 20 GM/30 ML CUP PO PRN (17:24)
[2018-01-07] MEDS: ASPIRIN 325 MG TAB PO SCH (08:27)
[2018-01-07] MEDS: MEGESTROL 400 MG/10 ML CUP PO SCH (08:28)
[2018-01-07] MEDS: APIXABAN 2.5 MG TABLET PO SCH ×2 (08:28→20:09)
[2018-01-07] MEDS: MORPHINE SULFATE IR 15 MG TABLET PO PRN ×3 (08:29→20:09)
[2018-01-07] MEDS: LACTULOSE 20 GM/30 ML CUP PO PRN (14:26)
[2018-01-07] MEDS: PSYLLIUM HUSK 100% 6 GM PACKET PO SCH (16:13)
[2018-01-07 20:39] VITALS: TEMP 97.8
[2018-01-08] MEDS: MORPHINE SULFATE IR 15 MG TABLET PO PRN ×2 (06:10→11:34)
[2018-01-08 07:55] VITALS: BP 113/74; PULSE 114; RESP 18
[2018-01-08] MEDS: MEGESTROL 400 MG/10 ML CUP PO SCH (08:39)
[2018-01-08] MEDS: APIXABAN 2.5 MG TABLET PO SCH (08:40)
[2018-01-08] MEDS: ASPIRIN 325 MG TAB PO SCH (08:41)
[2018-01-08] MEDS: PSYLLIUM HUSK 100% 6 GM PACKET PO SCH (09:57)
--- NOTE | 2018-01-08 14:46 | P.DS ---
Providers Date of admission: 01/03/18 03:53 Expected date of discharge: 01/08/18 Attending physician: Alex Ontiveros Consults: 01/03/18 03:53 Consult Physician Routine Consulting Provider: Philip Briones Consult Reason/Comments: known Do you want consulting provider notified?: Yes Consult Physician Routine Consulting Provider: Kaitlin Reyes Consult Reason/Comments: cva Do you want consulting provider notified?: Yes Primary care physician: Stated None Hospital Course: Final Diagnoses: 1. Acute ischemic left hemispheric stroke with dense right-sided hemiplegia 2. Chronic DVT for which patient chronically on Eliquis 3. Anorexia for malignancy 4. Metastatic pancreatic cancer 5. 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 Obesity, BMI 31.7 7. No code, no CPR, no intubation Hospital course: This is a 62-year-old gentleman with metastatic pancreatic cancer admitted with dense stroke of the right side of the body. Evaluated by neurology. Given his advanced metastatic pancreatic cancer, no aggressive workup as per family's wishes.Comfort care/ hospice discussed. Patient and family wishes to proceed with subacute rehab at this time. Anticoagulation and pain management as per oncology. Patient has been cleared by all consults for discharge. Patient is being discharged to [facility] in a stable condition with guarded prognosis. . Physical Exam:VSS, alert and oriented 3, no acute distress. CV: Regular S1 and S2.LUNGS: Respiratory effort normal lungs diminished, Neuro: dense right-sided hemiplegia. The impression and plan of care has been dictated as directed. : I performed a history and examination of this patient, discussed the same with the dictator. I agree with the dictator's note ,documented as a scribe. Any additional findings or plans will be noted. Time taken: 35 minutes Patient Condition at Discharge: Stable Plan - Discharge Summary Discharge Rx Participant: No New Discharge Prescriptions: New Psyllium Husk 100% [Metamucil Packet] 6 gm PO DAILY packet Aspirin 325 mg PO DAILY tab Morphine Sulfate ER [Ms Contin 30Mg] 30 mg PO Q12HR #6 tab Morphine Sulfate Ir [MSIR] 15 mg PO Q4H PRN #18 tab PRN Reason: Breakthrough Pain Continue Apixaban [Eliquis] 2.5 mg PO BID Sennosides [Senna] 17.2 mg PO BID PRN PRN Reason: Constipation Lactulose 20 gm PO TID PRN PRN Reason: Constipation Megestrol [Megace] 400 mg PO DAILY Discharge Medication List Apixaban [Eliquis] 2.5 mg PO BID 01/03/18 [History] Lactulose 20 gm PO TID PRN 01/03/18 [History] Megestrol [Megace] 400 mg PO DAILY 01/03/18 [History] Sennosides [Senna] 17.2 mg PO BID PRN 01/03/18 [History] Aspirin 325 mg PO DAILY tab 01/08/18 [Rx] Morphine Sulfate ER [Ms Contin 30Mg] 30 mg PO Q12HR #6 tab 01/08/18 [Rx] Morphine Sulfate Ir [MSIR] 15 mg PO Q4H PRN #18 tab 01/08/18 [Rx] Psyllium Husk 100% [Metamucil Packet] 6 gm PO DAILY packet 01/08/18 [Rx] Follow up Appointment(s)/Referral(s): Mayank Lopez DO [STAFF PHYSICIAN] - 1 Week (after dc from [facility]) Emmy Vigil MD [STAFF PHYSICIAN] - 1 Week Atiya Reyes MD [STAFF PHYSICIAN] - 2 Weeks Activity/Diet/Wound Care/Special Instructions: anticoagulation, pain management as per oncology CBC,CMP in 3 days
[2018-01-08] MEDS ORDERED: MORPHINE SULFATE IR 15 MG TABLET PO PRN (15:35)
--- NOTE | 2018-01-08 18:32 | P.PN ---
Subjective Progress Note Date: 01/07/18 Progress note being dictated for Dr. Ontiveros. Interval history: This is a 62-year-old gentleman with metastatic pancreatic cancer admitted with dense stroke of the right side of the body. Evaluated by neurology. Given his advanced metastatic pancreatic cancer, no aggressive workup as per family's wishes.patient currently no code, no CPR, no intubation. Comfort care/ hospice discussed.Spouse currently stating she wishes for patient to be kept comfortable with pain management titrated to his comfort, no more lab draws and wishes for patient to go to [facility]. Objective - Vital Signs Vital signs: Vital Signs Temp 97.9 F 01/07/18 15:00 Pulse 107 H 01/07/18 16:00 Resp 18 01/07/18 16:00 BP 96/67 01/07/18 15:00 Pulse Ox 93 L 01/07/18 15:00 Intake & Output 01/07/18 01/07/18 01/08/18 06:59 18:59 06:59 Output Total 0 0 Balance 0 0 Weight 106 kg 106 kg Output: Stool 0 0 Other: Voiding Method Diaper Diaper Incontinent Incontinent # Voids 2 3 - Exam PHYSICAL EXAM: VITAL SIGNS: As above GENERAL: Sitting up in bed, comfortable, tired, jaundiced HEENT: Conjunctivae icterus. Pupils equal NECK: No JVD. No thyroid enlargement. No LNs CARDIOVASCULAR: S1, S2 muffled. No murmur RESPIRATION: Breath sounds diminished in the bases. No rhonchi or crackles. No bronchial breathing. ABDOMEN: Soft, distended, nontender . No guarding. no masses palpable. No ascites. No hepatosplenomegaly. LEGS: No edema. no swelling PSYCHIATRY: Alert and oriented -3, mood and affect normal. NERVOUS SYSTEM: Right hemiparesis No focal deficits. Skin: no ulcer no rash - Labs CBC & Chem 7: 01/03/18 03:56 01/03/18 03:56 Assessment and Plan Assessment: 1. Acute ischemic left hemispheric stroke with dense right-sided hemiplegia 2. Chronic DVT for which patient chronically on Eliquis 3. Anorexia for malignancy 4. Metastatic pancreatic cancer 5. 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 Obesity, BMI 31.7 7. No code, no CPR, no intubation Plan: Continue on current medication regime ,monitoring and symptomatic treatment. We'll discuss pain management and anticoagulation with oncology. Currently patient and his spouse are leaning towards comfort care, but will await her further discussion with social welfare research worker regarding ECF. [employer] light rail train operator consulted. The impression and plan of care has been dictated as directed. : I performed a history and examination of this patient, discussed the same with the dictator. I agree with the dictator's note ,documented as a scribe. Any additional findings or plans will be noted.
--- NOTE | 2018-01-10 09:26 | CDI ---
Last Revision, August 2017 Documentation Clarification Form Date: 01/10/18 From: Bety Rousseau Phone: If you have a question regarding this query, please contact Hyun Dobbs at [phone] between 8am and 5pm Admit Date: 01/03/2018 3:53:00 AM Patient Name: Shailesh Strickland Visit Number: [id number] Discharge Date: 01/08/18 ATTENTION: The Clinical Documentation Specialists (CDI) and [facility] Coding Staff appreciate your assistance in clarifying documentation. Please respond to the clarification below the line at the bottom and electronically sign. The CDI & [facility] Coding staff will review the response and follow-up if needed. Please note: Queries are made part of the Legal Health Record. If you have any questions, please contact the author of this message via ITS. Dr. Atiya Reyes Acute ischemic left MCA stroke is documented in your consult note and 01/04 and 01/05 progress notes. Acute stroke likely ischemic, possibly in the brainstem is documented in Dr. Cotton's notes. Acute ischemic left hemispheric stroke with dense right-sided hemiplegia is documented in the discharge summary. History/Risk Factors: Patient has pancreatic cancer with metastases to the liver and abdominal lymph nodes. He also has a history of previous strokes with residual right arm weakness. Clinical Indicators: Dense right sided hemiplegia and slurred speech. CT: CT brain w/o contr for TPA - Old left posterior temporal and posterior parietal lobe infarct. No evidence of an acute infarct. No hemorrhage. CT angio head and neck - Hypodensity in the left cerebral hemisphere consistent with old infarcts. No evidence of arterial stenosis. No evidence of aneurysm or neovascularity MRI/MRA: Not done. Treatment: Patient was made comfort care. In your professional opinion, please clarify the type of Stroke/CVA: Embolism Occlusion Stenosis Thrombosis Hemorrhagic(if know specify specific location) Other (please specify): Unable to Determine This stroke was likely thrombosis of small intracranial artery. MTDD
== END 2018-01-08 18:39 | DRG 65 ==
LOC: EC 02:05 → 6SEL 03:53 → 5ONC 01-04 21:42
PROVIDERS: ADMIT Hospitalist; ATTEND Hospitalist
DX: I63.312 Cerebral infarction due to thrombosis of left middle cerebral artery (principal); G81.91 Hemiplegia, unspecified affecting right dominant side; C25.9 Malignant neoplasm of pancreas, unspecified; C78.7 Secondary malignant neoplasm of liver and intrahepatic bile duct; C77.2 Secondary and unspecified malignant neoplasm of intra-abdominal lymph nodes; I69.953 Hemiplegia and hemiparesis following unspecified cerebrovascular disease affecting right non-dominant side; I82.503 Chronic embolism and thrombosis of unspecified deep veins of lower extremity, bilateral; E66.9 Obesity, unspecified; G89.29 Other chronic pain; R10.9 Unspecified abdominal pain; Z51.5 Encounter for palliative care; Z66 Do not resuscitate; R63.0 Anorexia; R32 Unspecified urinary incontinence; K59.03 Drug induced constipation; T40.2X5A Adverse effect of other opioids, initial encounter; M62.81 Muscle weakness (generalized); B91 Sequelae of poliomyelitis; Z68.31 Body mass index [BMI] 31.0-31.9, adult; Z79.01 Long term (current) use of anticoagulants; Z79.899 Other long term (current) drug therapy; Z87.891 Personal history of nicotine dependence; Z98.42 Cataract extraction status, left eye; Z98.41 Cataract extraction status, right eye; Z96.1 Presence of intraocular lens; Z83.3 Family history of diabetes mellitus; Z82.49 Family history of ischemic heart disease and other diseases of the circulatory system; Y92.009 Unspecified place in unspecified non-institutional (private) residence as the place of occurrence of the external cause
CPT/HCPCS: 36415; 70450; 70496; 70498; 80053; 80061; 81001; 82140; 82550; 82553; 84484; 85025; 85610; 85730; 93005; 94760; 96361; 96374; 99291